=== PATIENT | female | born 1935 | race African-American/Black ===

== ENCOUNTER 2022-12-11 11:34 | Emergency (ER) | payer OTHER ==
[2022-12-11 12:01] VITALS: BP 140/72; PULSE 92; RESP 18; TEMP 97.9; BMI 36.1
[2022-12-11] MEDS ORDERED: ACETAMINOPHEN 325 MG TABLET (FP) PO ONE (13:14)
[2022-12-11] MEDS ORDERED: ACETAMINOPHEN 325 MG TABLET (FP) ONE (13:22)
[2022-12-11] MEDS ORDERED: LIDOCAINE 5% TOPICAL PATCH TP ONE (14:23)
[2022-12-11] MEDS ORDERED: LIDOCAINE 5% TOPICAL PATCH ONE (15:11)
[2022-12-11] MEDS ORDERED: LIDOCAINE PATCH REMOVAL MC SCH (23:30)
== END 2022-12-11 16:49 | disposition home or self-care (01) ==
LOC: JER 11:34
DX: S43.005A Unspecified dislocation of left shoulder joint, initial encounter (principal); W19.XXXA Unspecified fall, initial encounter
CPT/HCPCS: 72070-TC-FY; 73030-TC-LT-FY; 99284-25